=== PATIENT | female | born 1975 | race Two or more races ===

== ENCOUNTER 2022-07-16 11:05 | Emergency (ER) | payer OTHER ==
[~2022-07-16] VITALS: Ht 165.1 cm; Wt 90.3 kg
[2022-07-16] MEDS ORDERED: INTESTINEX680 M1 PO (17:42)
== END 2022-07-16 17:46 | disposition home or self-care (01) ==
LOC: ER 11:05
DX: K52.9 Noninfective gastroenteritis and colitis, unspecified (principal)